=== PATIENT | male | born 1990 | race Caucasian/White ===

== ENCOUNTER 2016-11-22 07:36 | Emergency (ER) | payer BC ==
[2016-11-22 07:57] VITALS: BP 139/74
--- NOTE | 2016-11-22 08:09 | UC ---
Ear Complaint HPI - HPI Summary HPI Summary: 25 yo presents here with mild left ear discomfort after using qtip decreased hearing no URI symptoms hx OM x 1 as child - History of Current Complaint Chief Complaint: UCEar Stated Complaint: FB IN EAR Time Seen by Provider: 11/22/16 07:51 Hx Obtained From: Patient Onset/Duration: Sudden Onset, Lasting Hours Severity Initially: Mild Severity Currently: Mild Pain Intensity: 2 Pain Scale Used: 0-10 Numeric Aggravating Factors: FB - ? Associated Signs/Symptoms: Positive: Hearing Loss - Allergies/Home Medications Allergies/Adverse Reactions: Allergies Allergy/AdvReac Type Severity Reaction Status Date / Time No Known Allergies Allergy Verified 11/22/16 07:39 Home Medications: Home Medications NK [No Home Medications Reported] 11/22/16 [History Confirmed 11/22/16] PMH/Surg Hx/FS Hx/Imm Hx Previously Healthy: Yes - Surgical History Surgical History: None - Family History Known Family History: Positive: Hypertension - Social History Alcohol Use: Daily Alcohol Amount: beer Substance Use Type: None Smoking Status (MU): Never Smoked Tobacco Review of Systems Constitutional: Negative Skin: Negative Eyes: Negative ENT: Ear Ache Respiratory: Negative Cardiovascular: Negative Gastrointestinal: Negative Genitourinary: Negative Motor: Negative Neurovascular: Negative Musculoskeletal: Negative Neurological: Negative Psychological: Negative All Other Systems Reviewed And Are Negative: Yes Physical Exam Triage Information Reviewed: Yes Appearance: Well-Appearing, No Pain Distress, Well-Nourished Vital Signs: Initial Vital Signs Temp 98.4 F 11/22/16 07:40 Pulse 66 11/22/16 07:40 Resp 18 11/22/16 07:40 BP 139/74 11/22/16 07:40 Pulse Ox 100 11/22/16 07:40 Vital Signs Reviewed: Yes Eyes: Positive: Conjunctiva Clear ENT: Negative: Hearing grossly normal, Pharyngeal erythema, Nasal congestion, TMs normal - unable to vis due to cerumen, Tonsillar swelling, Tonsillar exudate , Trismus, Muffled/hoarse voice Dental: Negative: Gross Decay/Caries @, Abscess @, Cellulitis @, Cervical Lymphadenopathy, Bleeding Neck: Positive: Supple, Nontender Respiratory: Positive: Lungs clear, Normal breath sounds, No respiratory distress, No accessory muscle use Cardiovascular: Positive: RRR, No Murmur Neurological: Positive: Alert Psychological Exam: Normal Skin Exam: Normal Re-Evaluation - Re-Evaluation First Eval Re-Evaluation Time: 08:25 Change: Improved - TMs normal bilaterally Ear Complaint Course/Dx - Differential Dx/Diagnosis Provider Diagnoses: cerumen impaction bilaterally. elevated BP Discharge - Discharge Plan Condition: Stable Disposition: HOME Patient Education Materials: Cerumen Impaction (ED) Forms: *Work Release Referrals: Frank Regan MD [Primary Care Provider] - If Needed (your BP was a little elevated here and should be rechecked at your next visit) Additional Instructions: call for any questions return for any problems
== END 2016-11-22 08:37 | disposition home or self-care (01) ==
LOC: UCEAST 07:36
DX: H61.23 Impacted cerumen, bilateral (principal); R03.0 Elevated blood-pressure reading, without diagnosis of hypertension
CPT/HCPCS: 99203; G0463

== ENCOUNTER 2017-01-18 08:14 | Emergency (ER) | payer BC ==
[2017-01-18 08:25] VITALS: BP 155/100
[2017-01-18] MEDS ORDERED: cefTRIAXone VIAL(*) 250 MG VIAL IM ONE (08:46)
[2017-01-18] MEDS ORDERED: Lidocaine 1% INJ* 10 MG/ML 30 ML SDV INJ ONE (08:46)
[2017-01-18] MEDS ORDERED: Azithromycin TAB* 250 MG PO ONE (08:47)
[2017-01-18] MEDS ORDERED: Ondansetron ODT TAB* 4 MG PO ONE (08:47)
[2017-01-18] MEDS ORDERED: Lidocaine 1% MPF* 2 ML VIAL ONE (08:54)
--- NOTE | 2017-01-18 09:09 | UC ---
Dayo Luna Nilda, scribed for Muriel Rios MD on 01/18/17 at 0831 . Complaint Male HPI - HPI Summary HPI Summary: 26 yo gentleman c/o feeling general unwellness since last 2-3 days. Burning with urination since last night, particularly bad this morning. No fever. no rash. No n/v. Denies sores or rash. No sore throat. Some subjective purulence at end of urination. Last ontercourse approx 2 weeks ago. - History of Current Complaint Chief Complaint: UCGU Stated Complaint: STD TESTING Time Seen by Provider: 01/18/17 08:18 Hx Obtained From: Patient - Allergies/Home Medications Allergies/Adverse Reactions: Allergies Allergy/AdvReac Type Severity Reaction Status Date / Time No Known Allergies Allergy Verified 01/18/17 08:23 PMH/Surg Hx/FS Hx/Imm Hx Previously Healthy: Yes - Surgical History Surgical History: None - Family History Known Family History: Positive: Hypertension - Social History Alcohol Use: Daily Alcohol Amount: beer Substance Use Type: None Smoking Status (MU): Never Smoked Tobacco Review of Systems Constitutional: Negative - see hpi Skin: Negative Eyes: Negative ENT: Negative Respiratory: Negative Cardiovascular: Negative Gastrointestinal: Negative Genitourinary: Other - see hpi Motor: Negative Neurovascular: Negative Musculoskeletal: Negative Neurological: Negative Psychological: Negative Is Patient Immunocompromised?: No All Other Systems Reviewed And Are Negative: Yes Physical Exam Triage Information Reviewed: Yes Appearance: Well-Nourished Vital Signs: Initial Vital Signs Temp 99 F 01/18/17 08:23 Pulse 95 01/18/17 08:23 Resp 18 01/18/17 08:23 BP 155/100 01/18/17 08:23 Pulse Ox 99 01/18/17 08:23 Vital Signs Reviewed: Yes Eye Exam: Normal ENT Exam: Normal ENT: Positive: Other: - no throat sores or purulence appreciated Respiratory Exam: Normal, Other - no dyspnea, no tachypnea, normal respiratory rate Respiratory: Positive: Chest non-tender, Lungs clear, Normal breath sounds, No respiratory distress, No accessory muscle use Cardiovascular Exam: Normal - heart rate regualr, good general skin color, good capillary refill Cardiovascular: Positive: RRR, No Murmur, Pulses Normal, Brisk Capillary Refill Abdominal Exam: Normal Abdomen Description: Positive: Nontender, No Organomegaly, Soft, Other: - denies sores, swelling, rash, redness, or current d/c Bowel Sounds: Positive: Present Musculoskeletal Exam: Normal Musculoskeletal: Positive: Strength Intact Neurological Exam: Normal - nonfocal, grossly intact Psychological Exam: Normal - conversing easily and appropriately Skin Exam: Normal - no visible or reported rash Complaint Male Course/Dx - Course Course Of Treatment: No new problems in CCC. Reviewed std precautions. Declines testing for hiv, hepatitis. Plans to f/u with pcp accordingly. Questions as posed answered to the best of my ability. - Differential Dx/Diagnosis Provider Diagnoses: urethritis Discharge - Discharge Plan Condition: Stable Disposition: HOME Patient Education Materials: Sexually Transmitted Diseases (ED) Referrals: Frank Regan MD [Primary Care Provider] - Additional Instructions: Drink plenty of fluids. Avoid sexual relations until both you and your partner have been evaluated and treated. Seek medical attention for worse or new problems. Blood pressure 155/100. Please have this rechecked within two weeks. The documentation as recorded by the Dayo gillespie Nilda accurately reflects the service I personally performed and the decisions made by me, Muriel Rios MD.
== END 2017-01-18 09:05 | disposition home or self-care (01) ==
LOC: UCEAST 08:14
DX: N34.2 Other urethritis (principal)
CPT/HCPCS: 87491; 87591; 96372; 99212; A9270-GY; G0463; J0696; J2001